=== PATIENT | female | born 1985 | race Caucasian/White ===

== ENCOUNTER 2021-12-11 09:25 | Outpatient (REF) | payer BC, SELFPAY ==
--- NOTE | 2021-12-11 09:00 | PAPFT_PTH ---
PATIENT: Vikki Espinal LOC: [facility] U#:[id number] AGE/SX: 36/F ROOM: RE12/11/[address]: Melissa Rosa NP : 1985 BED: DIS: 12/11/2021 SPEC #: [id number] RECD: 12/11/21 13:13 STATUS: GEOFFREY MENDEZ #: [id number] HAI[place]: 12/11/21 09:[address]: Melissa Rosa NP DEPT: [facility] Cytology RECD BY: Kellie Loja Tissues: 1 - CX/ENDOCX FOR PAP SMEARS Procedures: PAP THIN PREP/[facility] Screening HPV DNA PROBE Comments: [id number]
== END 2021-12-11 09:26 | disposition home or self-care (01) ==
LOC: LBN 09:25
PROVIDERS: Visit Provider Nurse Practitioner Women's Health
DX: Z12.4 Encounter for screening for malignant neoplasm of cervix (principal); Z11.51 Encounter for screening for human papillomavirus (HPV); Z87.42 Personal history of other diseases of the female genital tract
CPT/HCPCS: 88142; 87624

== ENCOUNTER 2024-03-18 07:10 | Outpatient (REF) | payer BC, SELFPAY | END 2024-03-18 07:11 | disposition home or self-care (01) | LOC: LBN 07:10 | PROVIDERS: Visit Provider Family Medicine | DX: B96.29 Other Escherichia coli [E. coli] as the cause of diseases classified elsewhere (principal) | CPT/HCPCS: 87077; 87086; 87186 ==